=== PATIENT | female | born 1950 | race Hispanic/Latino ===

== ENCOUNTER 2017-10-09 08:43 | Outpatient (CLI) | payer MEDICAID, SELFPAY ==
[2017-10-09] MEDS: 0.9 % NaCl (Sterile) Posiflush 10 mL IV (09:50)
[2017-10-09 10:08] VITALS: BP 119/54; PULSE 87; RESP 18; TEMP 37.3; O2SAT 97
[2017-10-09 10:16] VITALS: BP 120/68; PULSE 86; RESP 18; TEMP 37; O2SAT 99
[2017-10-09 10:31] VITALS: BP 128/61; PULSE 85; RESP 18; TEMP 37.2; O2SAT 99
[2017-10-09 12:31] VITALS: BP 135/61; PULSE 83; RESP 18; TEMP 37.5; O2SAT 99
[2017-10-09 12:49] VITALS: BP 130/67; PULSE 85; RESP 16; TEMP 37.4; O2SAT 98
[2017-10-09] MEDS: 0.9% NaCl VAD Flush 10 ML IV (13:11)
== END 2017-10-09 13:15 | disposition home or self-care (01) ==
LOC: MEDOUTP 08:43 → MS3 08:45
DX: C92.02 Acute myeloblastic leukemia, in relapse (principal)
CPT/HCPCS: 36430; 86850; 86900; 86920; 86922; J7040; P9040; A4216

== ENCOUNTER → 2017-10-11 08:33 | Outpatient (CLI) | payer MEDICAID, SELFPAY ==
[2017-10-11 09:19] LABS: Absolute Lymphocyte Count 0.76 X10^3/ul (0.83-4.51); Absolute Neutrophil Count 1.7 X10^3/uL (2.0-7.7); Eosinophil# 0.02 X10^3/uL; Eosinophils% 0.8 % (0-5); Hematocrit 20.9 % (37-47); Hemoglobin 7.3 g/dl (12.0-15.0); Lymphocyte # 0.76 X10^3/ul (4.0); Lymphocyte % 29.1 % (19-41); Mean Corp Hgb Conc 34.9 g/gl (32-36); Mean Corpuscular Volume 82.9 fL (81-99); Mean Platelet Vol. 9.1 fl (6.2-12.0); Monocyte% 3.8 % (0-10); Neutrophil # 1.73 X10^3/uL (2.7-7.7); Neutrophil % 66.3 % (47-70); RBC Distribution Width CV 13.6 % (11.6-14.6); RBC Distribution Width SD 41.8 fl (35.1-43.9); Red Blood Count 2.52 M/mm3 (4.2-5.4); White Blood Count 2.6 K/mm3 (4.4-11.0)
[2017-10-11 09:44] LABS: AST(SGOT) 15 U/L (15-37); Alanine Aminotransfer ALT/SGPT 30 U/L (13-56); Albumin, Serum 3.6 g/dL (3.2-5.0); Alkaline Phosphatase 96 U/L (45-117); Anion Gap 10 (5-15); BUN 16 mg/dL (7-18); BUN/Creat Ratio 26.4 RATIO (10-20); Bilirubin, Direct 0.27 mg/dL (0.00-0.30); Calcium,Total 8.6 mg/dL (8.5-10.1); Chloride 102 mmol/L (98-107); EST Glomerular Filtration Rate 105 mL/min (>60); Est Glom Filt Rate - Afr Amer 127 mL/min (>60); Globulin 3.2 g/dL (2.2-4.2); Glucose 208 mg/dL (70-110); Magnesium 1.4 mg/dL (1.6-2.6); Potassium 4.1 mmol/L (3.5-5.1); Protein, Total 6.8 g/dL (6.4-8.2); Sodium Level 138 mmol/L (136-145)
[2017-10-11 09:47] LABS: Differential Indicated SCAN CRITERIA MET; POSITIVE COUNT YES; POSITIVE DIFFERENTIAL NO; POSITIVE MORPHOLOGY NO; Platelet Count 7 K/mm3 (150-450)
[2017-10-12 10:11] LABS: Pathologist Review Reviewed
== END ==
PROVIDERS: Visit Provider Nurse Practitioner
DX: C92.02 Acute myeloblastic leukemia, in relapse (principal)
CPT/HCPCS: 36591; 80048; 80076; 83735; 85025; A4216

== ENCOUNTER → 2017-10-12 10:31 | Outpatient (CLI) | payer MEDICAID, SELFPAY ==
[2017-10-12 10:57] VITALS: BP 135/66; PULSE 88; RESP 18; TEMP 36.8; O2SAT 97
[2017-10-12 11:39] VITALS: BP 128/65; PULSE 87; RESP 18; TEMP 36.6; O2SAT 97
[2017-10-12 12:39] VITALS: BP 122/66; PULSE 85; RESP 18; TEMP 36.8; O2SAT 99
== END ==
PROVIDERS: Visit Provider Nurse Practitioner
DX: C92.02 Acute myeloblastic leukemia, in relapse (principal)
CPT/HCPCS: 36430; 86644; 86900; 86965; J7040; P9037; A4216

== ENCOUNTER → 2017-10-14 10:10 | Outpatient (CLI) | payer MEDICAID, SELFPAY ==
[2017-10-14 10:40] LABS: Absolute Lymphocyte Count 0.72 X10^3/ul (0.83-4.51); Absolute Neutrophil Count 1.7 X10^3/uL (2.0-7.7); Hematocrit 17.9 % (37-47); Hemoglobin 6.2 g/dl (12.0-15.0); Lymphocyte # 0.72 X10^3/ul (4.0); Lymphocyte % 29.4 % (19-41); Mean Corp Hgb Conc 34.6 g/gl (32-36); Mean Corpuscular Hgb 28.4 pg (27.0-32.0); Mean Corpuscular Volume 82.1 fL (81-99); Mean Platelet Vol. 9.2 fl (6.2-12.0); Monocyte# 0.08 X10^3/uL; Monocyte% 3.3 % (0-10); Neutrophil # 1.65 X10^3/uL (2.7-7.7); Neutrophil % 67.3 % (47-70); RBC Distribution Width CV 13.3 % (11.6-14.6); RBC Distribution Width SD 40.8 fl (35.1-43.9); Red Blood Count 2.18 M/mm3 (4.2-5.4); White Blood Count 2.5 K/mm3 (4.4-11.0)
[2017-10-14 10:50] LABS: Differential Indicated SCAN CRITERIA MET; POSITIVE COUNT YES; POSITIVE DIFFERENTIAL NO; POSITIVE MORPHOLOGY NO; Platelet Count 16 K/mm3 (150-450)
[2017-10-14 11:01] LABS: Platelet Estimate MKD DEC (ADEQ)
[2017-10-14 11:02] LABS: ALB/GLOB Ratio 1.2 RATIO (0.9-2.4); AST(SGOT) 18 U/L (15-37); Alanine Aminotransfer ALT/SGPT 30 U/L (13-56); Albumin, Serum 3.7 g/dL (3.2-5.0); Alkaline Phosphatase 96 U/L (45-117); Anion Gap 10 (5-15); BUN 15 mg/dL (7-18); BUN/Creat Ratio 20.9 RATIO (10-20); Bilirubin, Direct 0.25 mg/dL (0.00-0.30); Chloride 101 mmol/L (98-107); Creatinine, Serum 0.72 mg/dL (0.55-1.02); EST Glomerular Filtration Rate 86 mL/min (>60); Est Glom Filt Rate - Afr Amer 104 mL/min (>60); Globulin 3.1 g/dL (2.2-4.2); Glucose 203 mg/dL (70-110); Magnesium 1.4 mg/dL (1.6-2.6); Protein, Total 6.8 g/dL (6.4-8.2); Sodium Level 138 mmol/L (136-145)
[2017-10-15 15:24] LABS: Pathologist Review Reviewed
== END ==
PROVIDERS: Visit Provider Nurse Practitioner
DX: C92.02 Acute myeloblastic leukemia, in relapse (principal)
CPT/HCPCS: 36591; 80053; 82248; 83735; 85025; A4216

== ENCOUNTER → 2017-10-15 09:36 | Outpatient (CLI) | payer MEDICAID, SELFPAY ==
[2017-10-15 10:08] VITALS: BP 117/61; PULSE 88; RESP 18; TEMP 36.3; O2SAT 98; BMI 23.3
[2017-10-15 11:03] VITALS: BP 108/59; PULSE 92; RESP 18; TEMP 36.6; O2SAT 98
[2017-10-15 12:03] VITALS: BP 131/91; PULSE 89; RESP 18; TEMP 36.6; O2SAT 99
[2017-10-15 12:50] VITALS: BP 112/55; PULSE 73; RESP 18; TEMP 36.4; O2SAT 96
== END ==
DX: C92.02 Acute myeloblastic leukemia, in relapse (principal)
CPT/HCPCS: 36430; 36591; 86850; 86900; 86920; 86922; J7040; P9040; A4216

== ENCOUNTER → 2017-10-18 10:43 | Outpatient (CLI) | payer MEDICAID, SELFPAY ==
[2017-10-15 10:08] VITALS: BP 117/61; BMI 23.3
[2017-10-18 11:21] LABS: Absolute Lymphocyte Count 0.72 X10^3/ul (0.83-4.51); Absolute Neutrophil Count 1.7 X10^3/uL (2.0-7.7); Eosinophil# 0.01 X10^3/uL; Eosinophils% 0.4 % (0-5); Hematocrit 18.6 % (37-47); Hemoglobin 6.5 g/dl (12.0-15.0); Lymphocyte # 0.72 X10^3/ul (4.0); Lymphocyte % 28.3 % (19-41); Mean Corp Hgb Conc 34.9 g/gl (32-36); Mean Corpuscular Hgb 28.6 pg (27.0-32.0); Mean Corpuscular Volume 81.9 fL (81-99); Mean Platelet Vol. 8.6 fl (6.2-12.0); Monocyte# 0.09 X10^3/uL; Monocyte% 3.5 % (0-10); Neutrophil # 1.72 X10^3/uL (2.7-7.7); Neutrophil % 67.8 % (47-70); RBC Distribution Width CV 13.4 % (11.6-14.6); RBC Distribution Width SD 40.5 fl (35.1-43.9); Red Blood Count 2.27 M/mm3 (4.2-5.4); White Blood Count 2.5 K/mm3 (4.4-11.0)
[2017-10-18 11:47] LABS: AST(SGOT) 14 U/L (15-37); Alanine Aminotransfer ALT/SGPT 27 U/L (13-56); Albumin, Serum 3.7 g/dL (3.2-5.0); Alkaline Phosphatase 101 U/L (45-117); Anion Gap 7 (5-15); BUN 17 mg/dL (7-18); BUN/Creat Ratio 22.1 RATIO (10-20); Bilirubin, Direct 0.27 mg/dL (0.00-0.30); Calcium,Total 8.7 mg/dL (8.5-10.1); Chloride 104 mmol/L (98-107); Creatinine, Serum 0.77 mg/dL (0.55-1.02); EST Glomerular Filtration Rate 79 mL/min (>60); Est Glom Filt Rate - Afr Amer 96 mL/min (>60); Globulin 3.1 g/dL (2.2-4.2); Glucose 261 mg/dL (74-106); Magnesium 1.4 mg/dL (1.6-2.6); Potassium 3.9 mmol/L (3.5-5.1); Protein, Total 6.8 g/dL (6.4-8.2); Sodium Level 137 mmol/L (136-145)
[2017-10-18 12:03] LABS: Differential Indicated SCAN CRITERIA MET; POSITIVE COUNT YES; POSITIVE DIFFERENTIAL NO; POSITIVE MORPHOLOGY NO; Platelet Count 6 K/mm3 (150-450)
[2017-10-19 14:49] LABS: Pathologist Review Reviewed
== END ==
DX: C92.02 Acute myeloblastic leukemia, in relapse (principal)
CPT/HCPCS: 36591; 80048; 80076; 83735; 85025; 86850; 86900; 86920; 86922; A4216

== ENCOUNTER → 2017-10-22 10:44 | Outpatient (CLI) | payer MEDICAID, SELFPAY ==
[2017-10-19 13:32] VITALS: BP 129/58; BMI 27.8
[2017-10-22 10:56] VITALS: BP 122/70; PULSE 94; RESP 18; TEMP 37.4; O2SAT 100
[2017-10-22 11:29] VITALS: BP 109/66; PULSE 93; RESP 18; TEMP 37; O2SAT 99
[2017-10-22 12:29] VITALS: BP 130/66; PULSE 82; RESP 18; TEMP 37.4; O2SAT 100
[2017-10-22 13:00] VITALS: BP 124/84; PULSE 84; RESP 16; TEMP 37.5; O2SAT 99
== END ==
DX: C92.02 Acute myeloblastic leukemia, in relapse (principal)
CPT/HCPCS: 36430; 86850; 86900; 86920; 86922; J7040; P9040; A4216

== ENCOUNTER 2017-11-21 22:18 | Emergency (ER) | payer MEDICAID, SELFPAY ==
[2017-11-21 22:22] VITALS: BP 128/68; PULSE 100; RESP 14; TEMP 38.3; O2SAT 96; BMI 28.0
--- NOTE | 2017-11-21 22:40 | RAD_ITS ---
XR Chest 1 View INDICATION: FEVER AND CANCER (AML) COMPARISON: None TECHNIQUE: Portable chest x-ray FINDINGS: The heart size is mildly enlarged. Central pulmonary vascularity is prominent. A right-sided chest port is seen in place with catheter tip projecting at the SVC/RA junction. RAD/Chest 1 View (Portable) IMPRESSION: Cardiomegaly and central vascular prominence. Lungs otherwise clear. at 2309 Reported and signed by: Hailey Puentes MD Electronically Signed: Hailey Puentes MD at 22:07 EDT Tel , Service support ,
--- NOTE | 2017-11-21 22:42 | ED.VISSUMM ---
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 She has chronic thrombocytopenia. Patient does not speak Romanian but her daughter lives with her who is very well knowledgeable in her past medical history and is very good with Arabic. No cough. No abdominal pain. Patient has not been recently hospitalized. This week though she was transfused 2 different times for blood and platelets. Physical Examination: Well-appearing older female. Vital signs are stable she does have a temperature of 100.9. Pulse ox 96% room air. She does not look septic or toxic. She is in no acute distress. H EENT exam unremarkable moist wheeze membranes. Neck nontender no lymphadenopathy. Lungs clear to auscultation bilaterally. Heart regular rhythm no murmur. Chest wall is nontender. She is a right chest wall Mediport without erythema or discharge. It looks good. Abdomen is soft and nontender. Normal bowel sounds no peritoneal signs. She is moving all 4 extremities. They are neurovascularly intact. They are nontender without erythema or rashes. Back exam is nontender. Neurologically she is following commands and through her [id number] the borematic operator she is answering questions. She has no focal motor deficits. Test Results: Shows a white count of 0.9. H&H is 7 and 21. 10,000 platelets. 22% segmented neutrophils. Her absolute neutrophil count is below 300. Her BMP is normal. Her UA is pending. She urinated but we did not get a sample. Chest x-ray shows no acute process read both by myself the radiologist. Blood cultures are pending. Emergency Department Course and Treatment: Clinically the patient looks good. Due to her history and bone marrow transplant she will undergo an infectious workup including a chest x-ray, blood cultures and lab work. Treatment Plan: The patient's history, fever and pancytopenia and neutropenia she will be started on parenteral antibiotics meropenem and vancomycin. I have already spoken to Dr. Crane the overnight hospitalist who is in the ER evaluate the patient for admission. Repeat exam patient is resting comfortably at 00 25. I had a discussion with her [id number]. After the patient refused admission I went back into reevaluate her at 02 45 she is doing well. O2 her [id number] the nurse at length and they are to follow-up with [facility] tomorrow. She will be placed on Levaquin daily. For fever of uncertain etiology. Disposition: Discharge after signing out AGAINST MEDICAL ADVICE. The hospitalist came down to evaluate the patient for admission and she adamantly refused. Impression: Acute neutropenic fever of uncertain etiology History of acute myelogenous leukemia History of chronic thrombocytopenia and pancytopenia History of bone marrow transplant Signed out AMA This note was generated with [employer] dictation software. It may contain incorrect words, spelling, and punctuation that were not noted in review of the chart prior to signing ED Disposition - Plan for ED Patient: Chief Complaint: Fever Referrals: [facility],Out of [NON-STAFF] -
--- NOTE | 2017-11-21 22:45 | ED.DCSUM_ITS ---
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 She has chronic thrombocytopenia. Patient does not speak Upper Sorbian but her daughter lives with her who is very well knowledgeable in her past medical history and is very good with Czech. No cough. No abdominal pain. Patient has not been recently hospitalized. This week though she was transfused 2 different times for blood and platelets. Physical Examination: Well-appearing older female. Vital signs are stable she does have a temperature of 100.9. Pulse ox 96% room air. She does not look septic or toxic. She is in no acute distress. H EENT exam unremarkable moist wheeze membranes. Neck nontender no lymphadenopathy. Lungs clear to auscultation bilaterally. Heart regular rhythm no murmur. Chest wall is nontender. She is a right chest wall Mediport without erythema or discharge. It looks good. Abdomen is soft and nontender. Normal bowel sounds no peritoneal signs. She is moving all 4 extremities. They are neurovascularly intact. They are nontender without erythema or rashes. Back exam is nontender. Neurologically she is following commands and through her daughter-in -law the can filling and closing machine tender she is answering questions. She has no focal motor deficits. Test Results: Shows a white count of 0.9. H&H is 7 and 21. 10,000 platelets. 22% segmented neutrophils. Her absolute neutrophil count is below 300. Her BMP is normal. Her UA is pending. She urinated but we did not get a sample. Chest x-ray shows no acute process read both by myself the radiologist. Blood cultures are pending. Emergency Department Course and Treatment: Clinically the patient looks good. Due to her history and bone marrow transplant she will undergo an infectious workup including a chest x-ray, blood cultures and lab work. Treatment Plan: The patient's history, fever and pancytopenia and neutropenia she will be started on parenteral antibiotics meropenem and vancomycin. I have already spoken to Dr. Crane the overnight hospitalist who is in the ER evaluate the patient for admission. Repeat exam patient is resting comfortably at 00 25. I had a discussion with her [id number]. After the patient refused admission I went back into reevaluate her at 02 45 she is doing well. O2 her [id number] the nurse at length and they are to follow-up with [facility] tomorrow. She will be placed on Levaquin daily. For fever of uncertain etiology. Disposition: Discharge after signing out AGAINST MEDICAL ADVICE. The hospitalist came down to evaluate the patient for admission and she adamantly refused. Impression: Acute neutropenic fever of uncertain etiology History of acute myelogenous leukemia History of chronic thrombocytopenia and pancytopenia History of bone marrow transplant Signed out AMA This note was generated with [employer] dictation software. It may contain incorrect words, spelling, and punctuation that were not noted in review of the chart prior to signing ED Disposition - Plan for ED Patient: Chief Complaint: Fever Referrals: [facility],Out of [NON-STAFF] -
[2017-11-21 23:43] LABS: Absolute Lymphocyte Count 0.55 X10^3/ul (0.83-4.51); Absolute Neutrophil Count 0.2 X10^3/uL (2.0-7.7); Hematocrit 21.6 % (37-47); Hemoglobin 7.3 g/dl (12.0-15.0); Lymphocyte # 0.55 X10^3/ul (4.0); Mean Corp Hgb Conc 33.8 g/gl (32-36); Mean Corpuscular Volume 85.7 fL (81-99); Mean Platelet Vol. 9.9 fl (6.2-12.0); Monocyte# 0.11 X10^3/uL; Monocyte% 12.8 % (0-10); Neutrophil # 0.19 X10^3/uL (2.7-7.7); RBC Distribution Width CV 13.3 % (11.6-14.6); RBC Distribution Width SD 39.5 fl (35.1-43.9); Red Blood Count 2.52 M/mm3 (4.2-5.4)
[2017-11-21] MEDS: 0.9% Normal Saline 1,000 ML 1000 ML IV (23:53)
[2017-11-21 23:58] LABS: Anion Gap 9 (5-15); BUN 14 mg/dL (7-18); BUN/Creat Ratio 24.2 RATIO (10-20); Chloride 102 mmol/L (98-107); Creatinine, Serum 0.58 mg/dL (0.55-1.02); EST Glomerular Filtration Rate 110 mL/min (>60); Est Glom Filt Rate - Afr Amer 133 mL/min (>60); Estimated Creatinine Clearance 51.66 ml/min; Glucose 151 mg/dL (74-106); Potassium 4.1 mmol/L (3.5-5.1); Sodium Level 138 mmol/L (136-145)
[2017-11-22] LABS: Differential Indicated SCAN CRITERIA MET; POSITIVE COUNT YES; POSITIVE DIFFERENTIAL YES; POSITIVE MORPHOLOGY YES; Platelet Count 10 K/mm3 (150-450); White Blood Count 0.9 K/mm3 (4.4-11.0)
[2017-11-22 00:01] LABS: Differential Comment SCANNED
[2017-11-22 01:09] VITALS: BP 143/70; PULSE 98; RESP 30
[2017-11-22 01:15] LABS: Bacteria 0 SEEN /hpf (None Seen); Mucous, Urine 0 SEEN /hpf (<or=2+); Red Blood Cells-Urine 0 SEEN /hpf (0-5)
[2017-11-22 01:21] LABS: Color, Urine Yellow (Yellow); Glucose, Dipstick Normal (Normal); Ketone-Dipstick Negative (Negative); Leukocyte Esterase-Dipstick 25 /ul (Negative); Nitrite-Dipstick Negative (Negative); Occult Blood-Urine 50 /ul (Negative); Protein-Dipstick 15 mg/dl (Negative); Specific Gravity, Urine 1.005 (1.002-1.030); Urine Bilirubin Dipstick Negative (Negative); Urine Clarity Clear (Clear); Urine Urobilinogen Normal (Normal)
[2017-11-22 01:29] LABS: Squamous Epithelial Cells - UA 0-5 SEEN /hpf (5-10); White Blood Cells 0-5 SEEN /hpf (0-5)
[2017-11-22] MEDS: DiphenhydrAMINE 50 MG/ML Syringe 25 MG IV (02:31)
--- NOTE | 2017-11-22 02:51 | ED.DEP ---
ED Disposition - Plan for ED Patient: Disposition: Home or Assisted Living Chief Complaint: Fever Instructions: ED Fever Unconf Cause Prescriptions: Levofloxacin [Levaquin] 500 mg PO DAILY #7 tab Additional Instructions: Call and follow-up with her [facility] oncologist tomorrow. Plenty of fluids and rest. Tylenol for fever. She will be started on antibiotic Levaquin 1 pill per day in case there is a bacterial infection. Cultures are pending. The urinalysis and chest x-ray both showed no signs of infection. This could be a viral illness. If she feels worse we are more than happy to take care of her again if she needs to return.
[2017-11-22 03:38] VITALS: BP 147/73; PULSE 94; RESP 22; TEMP 37.9; O2SAT 100
--- NOTE | 2017-11-22 03:39 | ED.RN ---
PORT FLUSHED AND HEPRINIZED. DISCHARGE INSTRUCTIONS GIVEN TO AND REVIEWED WITH POA, POA DENIES QUESTIONS OR CONCERNS AND VOICES UNDERSTANDING OF DISCHARGE INSTRUCTIONS. PT AMBULATES OUT OF ROOM WITHOUT DIFFICULTY.
[2017-11-24 10:56] LABS: Pathologist Review Reviewed
== END 2017-11-22 03:43 | disposition home or self-care (01) ==
PROVIDERS: Emergency Provider Emergency Medicine
DX: D70.9 Neutropenia, unspecified (principal); R50.81 Fever presenting with conditions classified elsewhere; C92.00 Acute myeloblastic leukemia, not having achieved remission; D69.6 Thrombocytopenia, unspecified; D61.818 Other pancytopenia; Z94.81 Bone marrow transplant status; Z53.21 Procedure and treatment not carried out due to patient leaving prior to being seen by health care provider; Z95.828 Presence of other vascular implants and grafts; I51.7 Cardiomegaly; Z79.4 Long term (current) use of insulin; Z79.899 Other long term (current) drug therapy
CPT/HCPCS: 71045; 80048; 81001; 85025; 87040; 96361; 96365; 96366; 96368; 96372; 96375; 99283; J2185; J7030; A4216